=== PATIENT | female | born 1985 | race Caucasian/White ===

== ENCOUNTER 2017-06-08 10:11 | Emergency (ER) | END 2017-06-08 12:15 | disposition home or self-care (01) ==

== ENCOUNTER 2017-07-01 23:29 | Emergency (ER) | END 2017-07-02 01:41 | disposition left against medical advice (07) ==

== ENCOUNTER 2017-11-25 21:47 | Emergency (ER) | END 2017-11-26 02:47 | disposition home or self-care (01) ==

== ENCOUNTER 2018-09-02 20:12 | Inpatient (IN) | payer MEDICAID ==
[~2018-09-02] VITALS: Ht 160 cm; Wt 133.9 kg
[~2018-09-02 20:12] MED LIST: ACET500C5 PO; ALPR1TAB2 PO; CIPR500T4 PO; CYCL5TAB PO; GABA300C16 PO; HYDR-3498 PO; HYDR-4011 PO; IBUP-1542 PO; INSU100V14 SC; MTF1000T PO; NPH SC; ONDA4TAB8 PO; PREN-93 PO
[2018-09-02] MEDS ORDERED: SOD CHLORIDE 0.9% 1,000 ML IV STA (20:53)
--- NOTE | 2018-09-02 21:04 | ERD ---
ER Documentation Chief Complaint Chief Complaint INTERNAL PAIN NEAR RECENT C SECTION, (JUN 2018) ROS All systems reviewed and are negative except as per history of present illness. Medications Home Meds Active Scripts Vit No.124/Iron/FA ( Vitamin Tablet) 1 Each Tablet, 1 EACH PO DAILY for 30 Days, TAB Prov:JEMMA MONCADA 11/26/17 Acetaminophen* (Tylophen*) 500 Mg Capsule, 1 CAP PO Q6H PRN for PAIN AND OR ELEVATED TEMP, #20 CAP Prov:JEMMA MONCADA 11/26/17 Ondansetron Hcl* (Zofran*) 4 Mg Tablet, 4 MG PO Q6H for NAUSEA AND/OR VOMITING, #30 TAB Prov:EULALIA BRASWELL Michelle 06/08/17 Hydrocodone/Acetaminophen ([place] 5-325 Tablet) 1 Each Tablet, 1 TAB PO Q6H PRN for PAIN, #10 TAB Prov:FRENCH,EULALIA C 06/08/17 Ibuprofen* (Motrin*) 600 Mg Tab, 600 MG PO Q6, #30 TAB Prov:FRENCHEULALIA MARCUM Michelle 06/08/17 Hydrocodone Bit-Acetaminophen* ([place]*) 5-325 Mg Tab, 1 TAB PO Q6 PRN for PAIN, #20 TAB Prov:FRENCHLIZEULALIA C 09/29/15 Ciprofloxacin Hcl* (Ciprofloxacin Hcl*) 500 Mg Tablet, 500 MG PO BID for 7 Days, TAB Prov:EULALIA BRASWELL Michelle 09/29/15 Gabapentin* (Gabapentin*) 300 Mg Capsule, 300 MG PO QHS, #30 CAP Prov:DAY OMER NP 09/19/15 Alprazolam* (Xanax*) 1 Mg Tab, 1 MG PO Q8H PRN for ANXIETY, #10 TAB Prov:DAY OMER SIENE MAKER 09/19/15 Cyclobenzaprine Hcl* (Cyclobenzaprine Hcl*) 5 Mg Tablet, 5 MG PO Q8H PRN for MUSCLE SPASMS, #20 TAB Prov:DAY OMER SIENE MAKER 04/19/15 Ibuprofen* (Ibuprofen*) 600 Mg Tablet, 600 MG PO Q6H PRN for PAIN AND OR ELEVATED TEMP, #30 TAB Prov:DAY OMER SIENE MAKER 04/19/15 Hydrocodone Bit-Acetaminophen* ([place]ann[place]*) 5-325 Mg Tab, 1 TAB PO Q4H PRN for pa, #30 TAB Prov:DAY OMER NP 04/19/15 Metformin* (Glucophage*) 1,000 Mg Tablet, 1000 MG PO BID, #20 TAB Prov:BETTY FIELD PA-C 09/02/14 Reported Medications Insulin Human Nph (Novolin-N) 100 Units/Ml Susp, 20 UNIT SC BID, #10 04/18/15 Insulin Regular, Human (Humulin R) 100 Units/Ml Vial, 15 UNIT SC TID, #10 04/18/15 Allergies Allergies: Coded Allergies: Penicillins (Verified Allergy, Severe, CAN'T BREATHE, HIVES, 11/25/17) PMhx/Soc History of Surgery: Yes ( x 3) Anesthesia Reaction: No Hx Neurological Disorder: No Hx Respiratory Disorders: No Hx Cardiac Disorders: No Hx Psychiatric Problems: No Hx Miscellaneous Medical Probl: Yes (DM oral pills, gestational ) Hx Alcohol Use: Yes (Social) Hx Substance Use: No Hx Tobacco Use: No Smoking Status: Never smoker FmHx Family History: No diabetes, No coronary disease, No other Physical Exam Vitals Vital Signs Date Temp Pulse Resp B/P (MAP) Pulse Ox O2 O2 Flow FiO2 Time Delivery Rate 09/02/18 98.2 99 18 130/76 97 20:15 (94) Result Diagram: 09/02/18210709/02/182107 Results 24 hrs Laboratory Tests Test 09/02/18 21:08 09/02/18 21:16 White Blood Count 11.0 10^3/ul Red Blood Count 4.07 10^6/ul Hemoglobin 11.1 g/dl Hematocrit 34.0 % Mean Corpuscular Volume 83.5 fl Mean Corpuscular Hemoglobin 27.3 pg Mean Corpuscular Hemoglobin Concent 32.6 g/dl Red Cell Distribution Width 14.5 % Platelet Count 387 10^3/UL Mean Platelet Volume 9.9 fl Immature Granulocytes % 0.700 % Neutrophils % 62.0 % Lymphocytes % 31.4 % Monocytes % 3.9 % Eosinophils % 1.6 % Basophils % 0.4 % Nucleated Red Blood Cells % 0.0 /100WBC Immature Granulocytes # 0.080 10^3/ul Neutrophils # 6.8 10^3/ul Lymphocytes # 3.4 10^3/ul Monocytes # 0.4 10^3/ul Eosinophils # 0.2 10^3/ul Basophils # 0.0 10^3/ul Nucleated Red Blood Cells # 0.0 10^3/ul Urine Color YELLOW Urine Clarity SLIGHTLY CLOUDY Urine pH 7.0 Urine Specific [place] 1.021 Urine Ketones NEGATIVE mg/dL Urine Nitrite NEGATIVE mg/dL Urine Bilirubin NEGATIVE mg/dL Urine Urobilinogen NEGATIVE mg/dL Urine Leukocyte Esterase NEGATIVE Ynes/ul Urine Microscopic RBC 0 /HPF Urine Microscopic WBC 2 /HPF Urine Squamous Epithelial Cells FEW /HPF Urine Hemoglobin NEGATIVE mg/dL Urine Glucose NEGATIVE mg/dL Urine Total Protein NEGATIVE mg/dl Sodium Level 140 mmol/L Potassium Level 4.3 mmol/L Chloride Level 105 mmol/L Carbon Dioxide Level 27 mmol/L Anion Gap 8 Blood Urea Nitrogen 13 mg/dl Creatinine 1.06 mg/dl Est Glomerular Filtrat Rate mL/min > 60 mL/min Glucose Level 106 mg/dl Calcium Level 9.3 mg/dl Total Bilirubin 0.2 mg/dl Direct Bilirubin 0.00 mg/dl Indirect Bilirubin 0.2 mg/dl Aspartate Amino Transf (AST/SGOT) 39 IU/L Alanine Aminotransferase (ALT/SGPT) 68 IU/L Alkaline Phosphatase 210 IU/L Total Protein 7.9 g/dl Albumin 4.1 g/dl Globulin 3.80 g/dl Albumin/Globulin Ratio 1.07 Lipase 49 U/L POC Beta HCG, Qualitative NEGATIVE Current Medications Medications Dose Sig/Cristian Start Time Status Last (Trade) Ordered Route PRN Stop Time Admin Dose Reason Admin Sodium 1,000 ml @ Q1H STAT 09/02/18 DC 09/02/18 Chloride 1,000 mls/hr IV 20:53 21:21 09/02/18 21:52 IV Flush 10 ml STK-MED 09/02/18 DC 09/02/18 (NS 10 ml) ONCE .ROUTE 21:56 22:09 09/02/18 21:57 Sodium 100 ml @ ud STK-MED 09/02/18 DC 09/02/18 Chloride ONCE .ROUTE 21:56 22:09 09/02/18 21:57 Iohexol 150 ml STK-MED 09/02/18 DC 09/02/18 (Omnipaque ONCE .ROUTE 21:56 22:09 300mg/ ml) 09/02/18 21:57 PAPO SAMPSON Sep 02, 2018 21:04
[2018-09-02] MEDS ORDERED: IOHEXOL 300MG/ML 150 ML BTL ONE (21:56)
[2018-09-02] MEDS ORDERED: SOD CHLORIDE 0.9% 100 ML ONE (21:56)
[2018-09-02] MEDS ORDERED: morphine 4 MG/ML VIAL IV STA (23:56)
[2018-09-02] MEDS ORDERED: ONDANSETRON 4 MG INJ IV STA (23:56)
[2018-09-03] MEDS ORDERED: ACETAMINOPHEN 325 MG TAB PO PRN ×2 (00:30→01:30)
[2018-09-03] MEDS ORDERED: ONDANSETRON 4 MG INJ IV PRN ×2 (00:30→01:30)
--- NOTE | 2018-09-03 01:09 | HP ---
Date/Time of Note Date/Time of Note DATE: 09/03/18 TIME: 01:08 Assessment/Plan VTE Prophylaxis SCD applied (from Nsg): Yes Pharmacological prophylaxis: NA/contraindicated Pharm contraindication: low risk/ambulating Lines/Catheters IV Catheter Type (from Nrsg): Saline Lock Assessment/Plan Hospital Course This is a 32-year-old female being admitted to the [facility] floor for: #1 Intractable abdominal pain: Likely secondary to periumbilical hernia. There is mention in the CT scan of question vascular compromise. There is no signs at the current time of strangulation or incarceration. However patient does have tenderness to palpation. We will keep patient n.p.o. except meds, IV fluid hydration with normal saline. Dr. Martínez of general surgery has already been consulted. #2 diabetes mellitus: We will check hemoglobin A1c, insulin sliding scale, patient is currently n.p.o. except meds, will hold off initiating home insulin at the current time. #3 anxiety: Continue home benzo #4 morbidly obese: We will check a hemoglobin A1c, lipid panel, TSH, will need to encourage diet and lifestyle modification #5 normocytic anemia: We will check iron stores #6 DVT GI prophylaxis: SCDs, no GI prophylaxis indicated Further treatment strategy will be implemented as per the clinical course. Result Diagram: 09/02/18210709/02/182107 Results 24hrs Laboratory Tests Test 09/02/18 21:08 09/02/18 21:16 09/03/18 00:31 White Blood Count 11.0 H Red Blood Count 4.07 L Hemoglobin 11.1 L Hematocrit 34.0 L Mean Corpuscular Volume 83.5 Mean Corpuscular Hemoglobin 27.3 L Mean Corpuscular 32.6 Hemoglobin Concent Red Cell Distribution Width 14.5 Platelet Count 387 Mean Platelet Volume 9.9 Immature Granulocytes % 0.700 H Neutrophils % 62.0 Lymphocytes % 31.4 Monocytes % 3.9 Eosinophils % 1.6 Basophils % 0.4 Nucleated Red Blood Cells % 0.0 Immature Granulocytes # 0.080 H Neutrophils # 6.8 Lymphocytes # 3.4 H Monocytes # 0.4 Eosinophils # 0.2 Basophils # 0.0 Nucleated Red Blood Cells # 0.0 Urine Color YELLOW Urine Clarity SLIGHTLY CLOUDY A Urine pH 7.0 Urine Specific [place] 1.021 Urine Ketones NEGATIVE Urine Nitrite NEGATIVE Urine Bilirubin NEGATIVE Urine Urobilinogen NEGATIVE Urine Leukocyte Esterase NEGATIVE Urine Microscopic RBC 0 Urine Microscopic WBC 2 Urine Squamous FEW Epithelial Cells Urine Hemoglobin NEGATIVE Urine Glucose NEGATIVE Urine Total Protein NEGATIVE Sodium Level 140 Potassium Level 4.3 Chloride Level 105 Carbon Dioxide Level 27 Anion Gap 8 Blood Urea Nitrogen 13 Creatinine 1.06 H Est Glomerular Filtrat > 60 Rate mL/min Glucose Level 106 Calcium Level 9.3 Total Bilirubin 0.2 Direct Bilirubin 0.00 Indirect Bilirubin 0.2 Aspartate Amino 39 Transf (AST/SGOT) Alanine 68 Aminotransferase (ALT/SGPT) Alkaline Phosphatase 210 H Total Protein 7.9 Albumin 4.1 Globulin 3.80 H Albumin/Globulin Ratio 1.07 Lipase 49 POC Beta HCG, Qualitative NEGATIVE Bedside Glucose 132 HPI/ROS Admit Date/Time Admit Date/Time Hx of Present Illness Chief complaint: Abdominal pain near the umbilicus This is a 32-year-old female who presents to the emergency department com plaining of abdominal pain x3 days. Patient reports that she had abdominal pain around the umbilicus. She denies any nausea vomiting or diarrhea. She denies any fevers. She denies any problems with her bowel movements. She states that the pain was on and off over the last 3 days and as ago where she came into the emergency department. Patient did deliver a child in June via . She developed infection in her incision and required to go back via the OR to have the area debrided. She also had a wound VAC placed. She states that her pain though is not in the location of the . Allergies: Penicillin Medications: Metformin NPH insulin 20 units in a.m., 15 units in p.m. Regular insulin 15 units with meals ROS Const: As per HPI Eyes : No pain discharge or redness or change in visual acuity ENT: No pain, sore throat, congestion, congestion, dysphagia or discharge Respiratory: No shortness of breath, cough, sputum, wheezing, or pleuritic pain Cardiovascular: No chest pain, palpitation, PND, or edema GI : As per HPI Genitourinary: No dysuria, hematuria, flank pain , discharge or CVA tenderness Musculoskeletal: No joint pain, back pain, neck pain, restricted range of motion in neck or joints Skin: No rash, bruising or hives Neuro: No headache, dizziness, syncope, seizure, focal weakness Endocrine: No polyuria, polydipsia, temperature intolerance Psych: No hallucination, depression, anxiety or suicidal ideation PMH/Family/Social Past Medical History Diabetes mellitus anxiety Medications Current Medications Ondansetron HCl (Zofran Inj) 4 mg BRIDGE ORDER PRN IV NAUSEA/VOMITING; Start 09/03/18 at 00:30; Stop 09/04/18 at 00:29 Acetaminophen (Tylenol Tab) 650 mg ER BRIDGE PRN PO .MILD PAIN 1-3 OR TEMP; Start 09/03/18 at 00:30; Stop 09/04/18 at 00:29 Coded Allergies: Penicillins (Verified Allergy, Severe, CAN'T BREATHE, HIVES, 11/25/17) Past Surgical History Retinal laser surgery, x3, wound infection status post debridement and wound VAC Family History Significant Family History: no pertinent family hx Social History Alcohol Use: none Smoking Status: Never smoker Drug Use: none Exam/Review of Systems Vital Signs Vitals Vital Signs Date Temp Pulse Resp B/P (MAP) Pulse Ox O2 O2 Flow FiO2 Time Delivery Rate 09/02/18 98.2 99 18 130/76 97 20:15 (94) Intake and Output 09/02/18 09/02/18 09/03/18 1515:00 23:00 07:00 IntakeIntake Total 1100 ml BalanceBalance 1100 ml Exam Exam General: Patient is a pleasant female currently lying in bed in no acute distress HEENT: Atraumatic, normocephalic. The pupils are equal, round and reactive. Extraocular motor are intact Neck: Supple with full range of motion. No rigidity or meningismus Chest: Nontender Lungs: Clear to auscultation bilaterally no crackles rales or wheezing Heart: Normal S1-S2, Regular rhythm and rate. No murmur, S3, or S4 Abdomen: Morbidly obese, soft , tender to palpation at the umbilicus and goran umbilical area, periumbilical hernia palpated on exam more pronounced with cough, nondistended , bowel sounds are present. No guarding no rebound tenderness , previous scar present with dry dressing healing well Extremities: Normal to inspection, no edema no cyanosis Neurologic: Normal mental status, speech normal, cranial nerves II through XII are intact, motor and sensory are intact, no focal weakness Additional Comments PROCEDURE: CT abdomen and pelvis with contrast. CLINICAL INDICATION: Abdominal Pain TECHNIQUE: CT scan of the abdomen and pelvis without oral contrast was performed and is reconstructed at 2.5 mm contiguous axial intervals from the dome of the diaphragm to the inferior pubic rami.. The patient was scanned with intravenous contrast. Sagittal and coronal reformatted images were obtained from the axial source images. The calculated radiation dose measures 1477 mGy centimeters. The CTDI measures 23.7 mGy. Individualized dose optimization technique was used for the performance of this exam. This included 1. Automated exposure control. 2. Adjustment of the mA and / or kV according to the patient's size. 3. Use of iterative reconstructed technique. DICOM images are available. COMPARISON: CT chest September 09, 2013 FINDINGS: The lung bases are clear of any infiltrate . There is a single 3 mm pleural-base d micro nodule on the lateral aspect of the right lower lobe. This was not seen on the prior study from 2013.. No effusion is seen. Liver is enlarged measuring 29.5 cm in length. There is fatty infiltration. No mass or ductal dilatation is present. There are gallstones. No splenic, adrenal or pancreatic abnormalities present. Kidneys are of normal size and contour. No hydronephrosis, calculus or mass Is seen. Ureters are of normal course and caliber with no stone. No bladder mass or stone is present. Uterus and ovaries appear normal. There is no aneurysm. No adenopathy is present. No bowel mass or obstruction is present. The appendix is normal. No phlegmon, ascites or pneumoperitoneum is visualized. Noted is a midline paraumbilical hernia containing fat. There is stranding within the fat which may represent evidence of vascular compromise. No fluid or bowel loop is seen. The osseous structures are intact. IMPRESSION: No evidence of urolithiasis, obstructive uropathy, diverticulitis or appendicitis. Enlarged fatty liver. Cholelithiasis. Paraumbilical hernia containing dirty fat. Question vascular compromise. .Gurnider Ramsey MD, MD Date Time Electronically viewed and signed by .Gurinder Ramsey MD, MD on 09/02/2018 22:37 .A/ CC: PAPO SAMPSON [id number] PROCEDURE: US Abdomen. CLINICAL INDICATION: abdominal pain TECHNIQUE: Multiple real-time images were acquired of the patient's right upper quadrant abdomen and retroperitoneum utilizing a high resolution transducer. COMPARISON: 09/29/15 FINDINGS: The liver demonstrates increased echogenicity. The liver is enlarged in size and no focal solid lesions are seen. The liver measures 29.2 cm in length. The portal vein is patent with normal direction of flow. No intrahepatic biliary dilatation is seen. The gallbladder is filled with multiple calcified stones. There is no pericholecystic fluid or gallbladder wall thickening. The common bile duct measures 4.6 mm in maximal dimension. The visualized portions of the pancreas are unremarkable. The tail of the pancreas is not seen. No free fluid is identified. The right kidney is normal in size, and demonstrate normal echogenicity and cortical thickness. The right kidney measures 12 cm in long dimension. There is no evidence of hydronephrosis. There are no kidney stones. RPTAT: AA IMPRESSION: Marked hepatomegaly with fatty liver. Gallbladder filled with multiple calcified stones. .Ronnie Fong MD, MD Date Time Electronically viewed and signed by .Ronnie Fong MD, on 09/02/2018 22:03 .S/ CC: PAPO SAMPSON [phone] RAGINI MANUEL Sep 03, 2018 01:09
[2018-09-03] MEDS ORDERED: morphine 2 MG INJ IV PRN (01:30)
[2018-09-03] MEDS ORDERED: NACL 0.9% 3 ML SYG IV SCH (01:30)
[2018-09-03 04:05] VITALS: BP 117/67; PULSE 81; RESP 17
[2018-09-03] MEDS: SOD CHLORIDE 0.9% 1,000 ML IV SCH ×2 (04:17→12:39)
[2018-09-03 04:23] VITALS: Ht 160 cm; Wt 133.9 kg
[2018-09-03] MEDS ORDERED: MTF1000T PO (05:26)
[2018-09-03] MEDS ORDERED: SS SC (05:26)
[2018-09-03] MEDS ORDERED: INSU100C3 SQ (05:27)
[2018-09-03] MEDS ORDERED: NOVO3I SC (05:29)
[2018-09-03] MEDS ORDERED: GLUCAGON 1 MG INJ IM PRN (06:30)
[2018-09-03] MEDS ORDERED: GLUCOSE GEL 15 GRAM TUBE BUCCAL PRN (06:30)
[2018-09-03] MEDS ORDERED: DEXTROSE 50% 50 ML SYRINGE IV PRN ×2 (06:30)
[2018-09-03] MEDS ORDERED: GLUCOSE GEL 15 GRAM TUBE PO PRN ×2 (06:30)
[2018-09-03] MEDS ORDERED: ALPRAZOLAM 1 MG TAB PO PRN (07:00)
[2018-09-03 08:00] VITALS: BP 106/57; PULSE 75; RESP 18
[2018-09-03] MEDS: INSULIN ASPART [NOVOLOG] 3 ML PEN SC SCH ×4 (09:28→21:00)
--- NOTE | 2018-09-03 11:44 | QN ---
Documentation Comment 82-year-old morbidly obese female with a history of diabetes, anxiety disorders, here with intractable abdominal pain, found to have periumbilical hernia. Patient is hemodynamically stable. Pending surgical follow-up. Continue n.p.o. status. Continue pain control. Patient was counseled on lifestyle changes/weight reduction. Add basal insulin for diabetes management. Patient was seen in collaboration with NETTIE Lassiter NP Sep 03, 2018 11:44
--- NOTE | 2018-09-03 13:30 | CONS ---
Assessment/Plan Assessment/Plan Hospital Course (Demo Recall) 1. Abdominal pain likely secondary to umbilical hernia: Reducible; manually reduced -No emergent surgical intervention necessary at this time patient may follow with us as outpatient -Had lengthy discussion with patient regarding surgical repair of the hernia. Patient will need weight loss prior to surgical intervention to ensure successful repair. May follow with us as outpatient -Pain management -Abdominal binder 2. Superobesity BMI: 52 -diet and exercise optimization -encourage weight loss 3. Diabetes: -Highly encouraged weight loss -Glucose optimization 4. Mild leukocytosis: Resolved 5.Elevated triglycerides: -Highly encouraged weight loss -Diet and exercise 6. Minimally elevated alkaline phosphatase: -Trend and work-up if persistent 7. Right pubic open wound -Wound care Thank you. Patient seen and examined in collaboration with Dr. Chas Martíenz. Consultation Date/Type/Reason Admit Date/Time Date of Consultation: Sep 03, 2018 Type of Consult Surgical Reason for Consultation Abdominal pain, hernia Requesting Provider: RAGINI MANUEL Date/Time of Note DATE: 09/03/18 TIME: 13:11 Hx of Present Illness Rosetta Vera Is a 32-year-old woman with past medical history of diabetes, obesity, recent with right lower quadrant open wound, status post debridement of the area and wound VAC. Abdominal pain is, Who presented to the ED with complaints of abdominal pain x3 days. Abdominal pain is periumbilical with radiation to the back. She denies fevers, chills, congested cough, chest pain, palpitations, nausea, vomiting, change in bowel or bladder habits, trauma to the area. abdominal imaging shows umbilical hernia with concern for vascular compromise. Laboratory findings significant for a mild leukocytosis that has since resolved. General surgery was asked to evaluate. 12 point review of systems was performed and is negative except for as stated in HPI. Past Medical History As above Home Meds Active Scripts Vit No.124/Iron/FA ( Vitamin Tablet) 1 Each Tablet, 1 EACH PO DAILY for 30 Days, TAB Prov:REBECCAILABANBETZYAR F 11/26/17 Acetaminophen* (Tylophen*) 500 Mg Capsule, 1 CAP PO Q6H PRN for PAIN AND OR ELEVATED TEMP, #20 CAP Prov:PASILABAN,BETZYAR F 11/26/17 Ondansetron Hcl* (Zofran*) 4 Mg Tablet, 4 MG PO Q6H for NAUSEA AND/OR VOMITING, #30 TAB Prov:EULALIA BRASWELL Michelle 06/08/17 Hydrocodone/Acetaminophen ([place] 5-325 Tablet) 1 Each Tablet, 1 TAB PO Q6H PRN for PAIN, #10 TAB Prov:EULALIA BRASWELL Michelle 06/08/17 Ibuprofen* (Motrin*) 600 Mg Tab, 600 MG PO Q6, #30 TAB Prov:EULALIA BRASWELL 06/08/17 Hydrocodone Bit-Acetaminophen* ([place]*) 5-325 Mg Tab, 1 TAB PO Q6 PRN for PAIN, #20 TAB Prov:EULALIA BRASWELL Michelle 09/29/15 Ciprofloxacin Hcl* (Ciprofloxacin Hcl*) 500 Mg Tablet, 500 MG PO BID for 7 Days, TAB Prov:EULALIA BRASWELL Michelle 09/29/15 Gabapentin* (Gabapentin*) 300 Mg Capsule, 300 MG PO QHS, #30 CAP Prov:DAY OMER NP 09/19/15 Alprazolam* (Xanax*) 1 Mg Tab, 1 MG PO Q8H PRN for ANXIETY, #10 TAB Prov:DAY OMER [employer] 09/19/15 Cyclobenzaprine Hcl* (Cyclobenzaprine Hcl*) 5 Mg Tablet, 5 MG PO Q8H PRN for MUSCLE SPASMS, #20 TAB Prov:DAY OMER [employer] 04/19/15 Ibuprofen* (Ibuprofen*) 600 Mg Tablet, 600 MG PO Q6H PRN for PAIN AND OR ELEVATED TEMP, #30 TAB Prov:DAY OMER [employer] [employer] 04/19/15 Hydrocodone Bit-Acetaminophen* ([place]*) 5-325 Mg Tab, 1 TAB PO Q4H PRN for pa, #30 TAB Prov:DAY OMER [employer] 04/19/15 Metformin* (Glucophage*) 1,000 Mg Tablet, 1000 MG PO BID, #20 TAB Prov:BETTY FIELD PA-C 09/02/14 Reported Medications Insulin Aspart* (Novolog Insulin Pen*) 100 Unit/Ml Soln, 20 UNIT SC QHS, EA 09/03/18 Insulin Aspart (Novolog) 100 Unit/1 Ml Cartridge, 20 UNIT SQ AC BREAKFAST 09/03/18 Insulin Human Regular (Novolin-R U-100) 100 Unit/Ml Soln, 15 UNITS SC AC LUNCH DINNER, EA 09/03/18 Metformin* (Glucophage*) 1,000 Mg Tablet, 1000 MG PO WITH BREAKFAST, #30 TAB 09/03/18 Insulin Human Nph (Novolin-N) 100 Units/Ml Susp, 20 UNIT SC BID, #10 04/18/15 Insulin Regular, Human (Humulin R) 100 Units/Ml Vial, 15 UNIT SC TID, #10 04/18/15 Medications Current Medications Ondansetron HCl (Zofran Inj) 4 mg BRIDGE ORDER PRN IV NAUSEA/VOMITING; Start 09/03/18 at 00:30; Stop 09/04/18 at 00:29 Acetaminophen (Tylenol Tab) 650 mg ER BRIDGE PRN PO .MILD PAIN 1-3 OR TEMP; Start 09/03/18 at 00:30; Stop 09/04/18 at 00:29 Sodium Chloride 1,000 ml @ 100 mls/hr Q10H IV Last administered on 09/03/18at 12:39; Admin Dose 100 MLS/HR; Start 09/03/18 at 01:06 IV Flush (NS 3 ml) 3 ml PER PROTOCOL IV ; Start 09/03/18 at 01:30 Ondansetron HCl (Zofran Inj) 4 mg Q6H PRN IV NAUSEA/VOMITING; Start 09/03/18 at 01:30 Acetaminophen (Tylenol Tab) 650 mg Q6H PRN PO .PAIN 1-3 OR TEMP; Start 09/03/18 at 01:30 Morphine Sulfate (morphine) 2 mg Q4H PRN IV .SEVERE PAIN 7-10 Last administered on 09/03/18at 09:34; Admin Dose 2 MG; Start 09/03/18 at 01:30 Insulin Aspart (Novolog Insulin Pen) NOVOLOG *MILD* ALGORI... Q4 SC Last administered on 09/03/18at 12:46; Admin Dose 1 UNIT; Start 09/03/18 at 09:00 Miscellaneous Information 1 ea NOTE XX ; Start 09/03/18 at 06:30 Glucose (Glutose) 15 gm Q15M PRN PO DECREASED GLUCOSE; Start 09/03/18 at 06:30 Glucose (Glutose) 22.5 gm Q15M PRN PO DECREASED GLUCOSE; Start 09/03/18 at 06:30 Dextrose (D50w Syringe) 25 ml Q15M PRN IV DECREASED GLUCOSE; Start 09/03/18 at 06:30 Dextrose (D50w Syringe) 50 ml Q15M PRN IV DECREASED GLUCOSE; Start 09/03/18 at 06:30 Glucagon (Glucagen) 1 mg Q15M PRN IM DECREASED GLUCOSE; Start 09/03/18 at 06:30 Glucose (Glutose) 15 gm Q15M PRN BUCCAL DECREASED GLUCOSE; Start 09/03/18 at 06:30 Alprazolam (Xanax) 1 mg Q8H PRN PO ANXIETY; Start 09/03/18 at 07:00 Allergies: Coded Allergies: Penicillins (Verified Allergy, Severe, CAN'T BREATHE, HIVES, 11/25/17) Past Surgical History As above Family History Significant Family History: no pertinent family hx Social History Alcohol Use: none Smoking Status: Never smoker Drug Use: none Exam/Review of Systems Exam Vitals Vital Signs Date Temp Pulse Resp B/P (MAP) Pulse Ox O2 O2 Flow FiO2 Time Delivery Rate 09/03/18 98.6 75 18 106/57 96 08:00 (73) 09/03/18 Room Air 03:53 Intake and Output 09/02/18 09/02/18 09/03/18 1515:00 23:00 07:00 IntakeIntake Total 1200 ml BalanceBalance 1200 ml Constitutional: alert, oriented, obese Psych: nl mood/affect; No anxiety Head: normocephalic, atraumatic Eyes: nl conjunctiva, EOMI, nl lids, nl sclera ENMT: nl external ears & nose, nl lips & teeth, mucosa pink and moist Neck: supple, non-tender; No jvd Respiratory: normal air movement; No congested cough Cardiovascular: regular rate and rhythm Gastrointestinal: soft, tender (Periumbilical; umbilical hernia, reducible; no skin discoloration or bruising) Genitourinary - Female: nl adnexae, nl external genitalia Musculoskeletal: nl extremities to inspection, nl gait and stance Extremities: normal pulses Neurological: nl mental status, nl speech, nl strength Skin: other (Open wound right lower pubis: No drainage clean, ); No rash or lesions, No diaphoresis Lymph: nl lymph nodes Results Result Diagram: 09/03/18 0521 09/03/18 0521 Results 24hrs Laboratory Tests Test 09/02/18 21:08 09/02/18 21:16 09/03/18 00:31 09/03/18 04:59 White Blood Count 11.0 H Red Blood Count 4.07 L Hemoglobin 11.1 L Hematocrit 34.0 L Mean Corpuscular 83.5 Volume Mean Corpuscular 27.3 L Hemoglobin Mean Corpuscular 32.6 Hemoglobin Concen t Red Cell 14.5 Distribution Width Platelet Count 387 Mean Platelet 9.9 Volume Immature 0.700 H Granulocytes % Neutrophils % 62.0 Lymphocytes % 31.4 Monocytes % 3.9 Eosinophils % 1.6 Basophils % 0.4 Nucleated Red 0.0 Blood Cells % Immature 0.080 H Granulocytes # Neutrophils # 6.8 Lymphocytes # 3.4 H Monocytes # 0.4 Eosinophils # 0.2 Basophils # 0.0 Nucleated Red 0.0 Blood Cells # Urine Color YELLOW Urine Clarity SLIGHTLY CLOUDY A Urine pH 7.0 Urine Specific 1.021 [place] Urine Ketones NEGATIVE Urine Nitrite NEGATIVE Urine Bilirubin NEGATIVE Urine NEGATIVE Urobilinogen Urine Leukocyte NEGATIVE Esterase Urine Microscopic 0 RBC Urine Microscopic 2 WBC Urine Squamous FEW Epithelial Cells Urine Hemoglobin NEGATIVE Urine Glucose NEGATIVE Urine Total NEGATIVE Protein Sodium Level 140 Potassium Level 4.3 Chloride Level 105 Carbon Dioxide 27 Level Anion Gap 8 Blood Urea 13 Nitrogen Creatinine 1.06 H Est Glomerular > 60 Filtrat Rate mL/min Glucose Level 106 Calcium Level 9.3 Total Bilirubin 0.2 Direct Bilirubin 0.00 Indirect 0.2 Bilirubin Aspartate Amino 39 Transf (AST/SGOT) Alanine 68 Aminotransferase (ALT/SGPT) Alkaline 210 H Phosphatase Total Protein 7.9 Albumin 4.1 Globulin 3.80 H Albumin/Globulin 1.07 Ratio Lipase 49 POC Beta HCG, NEGATIVE Qualitative Bedside Glucose 132 142 Test 09/03/18 05:21 09/03/18 09:24 09/03/18 12:44 White Blood Count 10.4 Red Blood Count 3.91 L Hemoglobin 10.4 L Hematocrit 32.7 L Mean Corpuscular 83.6 Volume Mean Corpuscular 26.6 L Hemoglobin Mean Corpuscular 31.8 L Hemoglobin Concen t Red Cell 14.8 H Distribution Width Platelet Count 359 Mean Platelet 9.9 Volume Immature 0.700 H Granulocytes % Neutrophils % 62.4 Lymphocytes % 30.1 Monocytes % 4.3 Eosinophils % 2.1 Basophils % 0.4 Nucleated Red 0.0 Blood Cells % Immature 0.070 H Granulocytes # Neutrophils # 6.5 Lymphocytes # 3.1 H Monocytes # 0.5 Eosinophils # 0.2 Basophils # 0.0 Nucleated Red 0.0 Blood Cells # Prothrombin Time 13.0 Prothrombin Time 1.0 Ratio INR International 0.97 Normalized Ratio Activated 35.6 H Partial Thrombopl ast Time Sodium Level 140 Potassium Level 4.1 Chloride Level 107 Carbon Dioxide 27 Level Anion Gap 6 Blood Urea 13 Nitrogen Creatinine 0.73 Est Glomerular > 60 Filtrat Rate mL/min Glucose Level 142 Hemoglobin A1c 6.6 H Calcium Level 8.7 Total Bilirubin 0.3 Direct Bilirubin 0.00 Indirect 0.3 Bilirubin Aspartate Amino 36 Transf (AST/SGOT) Alanine 60 Aminotransferase (ALT/SGPT) Alkaline 181 H Phosphatase Total Protein 6.8 # Albumin 3.5 Globulin 3.30 H Albumin/Globulin 1.06 Ratio Triglycerides 191 H Level Cholesterol Level 141 LDL Cholesterol, 75 Calculated HDL Cholesterol 28 L Cholesterol/HDL 5.0 Ratio Thyroid 4.570 Stimulating Hormone (TSH) Bedside Glucose 170 159 Medications Medication Current Medications Ondansetron HCl (Zofran Inj) 4 mg BRIDGE ORDER PRN IV NAUSEA/VOMITING; Start 09/03/18 at 00:30; Stop 09/04/18 at 00:29 Acetaminophen (Tylenol Tab) 650 mg ER BRIDGE PRN PO .MILD PAIN 1-3 OR TEMP; Start 09/03/18 at 00:30; Stop 09/04/18 at 00:29 Sodium Chloride 1,000 ml @ 100 mls/hr Q10H IV Last administered on 09/03/18at 12:39; Admin Dose 100 MLS/HR; Start 09/03/18 at 01:06 IV Flush (NS 3 ml) 3 ml PER PROTOCOL IV ; Start 09/03/18 at 01:30 Ondansetron HCl (Zofran Inj) 4 mg Q6H PRN IV NAUSEA/VOMITING; Start 09/03/18 at 01:30 Acetaminophen (Tylenol Tab) 650 mg Q6H PRN PO .PAIN 1-3 OR TEMP; Start 09/03/18 at 01:30 Morphine Sulfate (morphine) 2 mg Q4H PRN IV .SEVERE PAIN 7-10 Last administered on 09/03/18at 09:34; Admin Dose 2 MG; Start 09/03/18 at 01:30 Insulin Aspart (Novolog Insulin Pen) NOVOLOG *MILD* ALGORI... Q4 SC Last administered on 09/03/18at 12:46; Admin Dose 1 UNIT; Start 09/03/18 at 09:00 Miscellaneous Information 1 ea NOTE XX ; Start 09/03/18 at 06:30 Glucose (Glutose) 15 gm Q15M PRN PO DECREASED GLUCOSE; Start 09/03/18 at 06:30 Glucose (Glutose) 22.5 gm Q15M PRN PO DECREASED GLUCOSE; Start 09/03/18 at 06:30 Dextrose (D50w Syringe) 25 ml Q15M PRN IV DECREASED GLUCOSE; Start 09/03/18 at 06:30 Dextrose (D50w Syringe) 50 ml Q15M PRN IV DECREASED GLUCOSE; Start 09/03/18 at 06:30 Glucagon (Glucagen) 1 mg Q15M PRN IM DECREASED GLUCOSE; Start 09/03/18 at 06:30 Glucose (Glutose) 15 gm Q15M PRN BUCCAL DECREASED GLUCOSE; Start 09/03/18 at 06:30 Alprazolam (Xanax) 1 mg Q8H PRN PO ANXIETY; Start 09/03/18 at 07:00 BAM TORREZ NP Sep 03, 2018 13:22
[2018-09-03 14:00] VITALS: BP 106/74; PULSE 76; RESP 20
[2018-09-03 19:30] VITALS: BP 112/69; PULSE 89; RESP 16
[2018-09-03] MEDS: NYSTATIN 30 GM POWDER BTL TOP SCH (21:30)
[2018-09-04] MEDS: SOD CHLORIDE 0.9% 1,000 ML IV SCH (00:23)
[2018-09-04 02:10] VITALS: BP 113/63; PULSE 81; RESP 18
[2018-09-04 08:00] VITALS: BP 118/63; PULSE 84; RESP 20
[2018-09-04] MEDS: INSULIN ASPART [NOVOLOG] 3 ML PEN SC SCH ×2 (09:22→12:48)
--- NOTE | 2018-09-04 10:18 | PDOCDIS ---
Discharge Instructions CONDITION [id number] Patient Condition: [id number] Stable HOME CARE INSTRUCTIONS: [id number] Your diet recommendation is: [id number] Carbohydrate controlled/low-cholesterol diet FOLLOW UP/APPOINTMENTS Follow-up Plan You are seen by surgical oncologist and abdominal pain likely secondary to umbilical hernia which was manually reduced . You were instructed to follow with or any other surgical oncologist of your choice as outpatient. You will need weight loss prior to surgical intervention to ensure successful repair. You will need to wear abdominal binder. Chas Martínez MD Specialty General Surgery Comments Office Address [address] [place] [address] [place] [id number] Office Follow up With primary care physician in 1 week. NETTIE GREER NP Sep 04, 2018 10:18
[2018-09-04] MEDS ORDERED: HYDR-4011 PO (10:22)
[2018-09-04] MEDS ORDERED: OMEG1CAP17 PO (10:25)
--- NOTE | 2018-09-04 10:32 | DS ---
Date/Time of Note Date/Time of Note DATE: 09/04/18 TIME: 10:30 Discharge Summary Admission/Discharge Info Admit Date/Time Sep 03, 2018 at 00:31 Discharge Date/Time Discharge Diagnosis Abdominal pain with umbilical hernia, reducible. Manually reduce. Morbid obesity with a BMI 52.3 Type 2 diabetes Dyslipidemia. Diabetic neuropathy Patient Condition: Stable Consults Procedures 09/02/2018: Abdominal CT MPRESSION: No evidence of urolithiasis, obstructive uropathy, diverticulitis or appendicitis. Enlarged fatty liver. Cholelithiasis. Paraumbilical hernia containing dirty fat. Question vascular compromise. Hospital Course 82-year-old morbidly obese female with a history of diabetes, anxiety disorders, here with intractable abdominal pain, found to have periumbilical hernia without any evidence of strangulation or incarceration. Patient was evaluated by commercial marketing specialist and no emergent surgical intervention was indicated. Umbilical hernia was manually reduced with improvement in pain. Patient was able to tolerate diet and activities afterwards. Patient was recommended regarding surgical repair of the hernia for which patient will also need to lose weight prior to surgical intervention to ensure successful repair. Patient was recommended to follow-up as outpatient with commercial marketing specialist after discharge. She was continued on pain management and abdominal binder for now. She was counseled on diet and exercise for underlying morbid obesity. She was recommended to take fish oil with repeat labs in 4 weeks. She was continued on insulin regimen for underlying diabetes. At this time, patient is feeling back to normal and eager to be discharged home. She will follow-up with commercial marketing specialist after discharge. Approximately 60-minute was spent on coordinating the discharge on this patient. Patient was seen in collaboration with Dr. Palomino. Home Meds Active Scripts [place]-3 Fatty Acids/Fish Oil (Fish Oil 1,000 mg Softgel) 1 Each Capsule, 1 EACH PO BID, #60 CAP Prov:NETTIE GREER V. GLASS WORKER 09/04/18 Vit No.124/Iron/FA ( Vitamin Tablet) 1 Each Tablet, 1 EACH PO DAILY for 30 Days, TAB Prov:JEMMA MONCADA 11/26/17 Acetaminophen* (Tylophen*) 500 Mg Capsule, 1 CAP PO Q6H PRN for PAIN AND OR ELEVATED TEMP, #20 CAP Prov:JEMMA MONCADA 11/26/17 Ondansetron Hcl* (Zofran*) 4 Mg Tablet, 4 MG PO Q6H for NAUSEA AND/OR VOMITING, #30 TAB Prov:FRENCHEULALIA Martinez 06/08/17 Hydrocodone/Acetaminophen ([place] 5-325 Tablet) 1 Each Tablet, 1 TAB PO Q6H PRN for PAIN, #10 TAB Prov:LIZ BRASWELLDEEPALI Martinez 06/08/17 Ibuprofen* (Motrin*) 600 Mg Tab, 600 MG PO Q6, #30 TAB Prov:LIZ BRASWELLDEEPALI Martinez 06/08/17 Hydrocodone Bit-Acetaminophen* ([place]*) 5-325 Mg Tab, 1 TAB PO Q6 PRN for PAIN, #20 TAB Prov:EULALIA BRASWELL 09/29/15 Ciprofloxacin Hcl* (Ciprofloxacin Hcl*) 500 Mg Tablet, 500 MG PO BID for 7 Days, TAB Prov:EULALIA BRASWELL 09/29/15 Gabapentin* (Gabapentin*) 300 Mg Capsule, 300 MG PO QHS, #30 CAP Prov:DAY OMER NP 09/19/15 Alprazolam* (Xanax*) 1 Mg Tab, 1 MG PO Q8H PRN for ANXIETY, #10 TAB Prov:DAY OMER [employer] 09/19/15 Cyclobenzaprine Hcl* (Cyclobenzaprine Hcl*) 5 Mg Tablet, 5 MG PO Q8H PRN for MUSCLE SPASMS, #20 TAB Prov:DAY OMER [employer] 04/19/15 Ibuprofen* (Ibuprofen*) 600 Mg Tablet, 600 MG PO Q6H PRN for PAIN AND OR ELEVATED TEMP, #30 TAB Prov:DAY OMER [employer] 04/19/15 Hydrocodone Bit-Acetaminophen* ([place]*) 5-325 Mg Tab, 1 TAB PO Q4H PRN for pa, #30 TAB Prov:DAY OMER [employer] 04/19/15 Metformin* (Glucophage*) 1,000 Mg Tablet, 1000 MG PO BID, #20 TAB Prov:BETTY FIELD-C 09/02/14 Reported Medications Insulin Human Nph (Novolin-N) 100 Units/Ml Susp, 20 UNIT SC BID, #10 04/18/15 Insulin Regular, Human (Humulin R) 100 Units/Ml Vial, 15 UNIT SC TID, #10 04/18/15 Discontinued Reported Medications Insulin Aspart* (Novolog Insulin Pen*) 100 Unit/Ml Soln, 20 UNIT SC QHS, EA 09/03/18 Insulin Aspart (Novolog) 100 Unit/1 Ml Cartridge, 20 UNIT SQ AC BREAKFAST 09/03/18 Insulin Human Regular (Novolin-R U-100) 100 Unit/Ml Soln, 15 UNITS SC AC LUNCH DINNER, EA 09/03/18 Metformin* (Glucophage*) 1,000 Mg Tablet, 1000 MG PO WITH BREAKFAST, #30 TAB 09/03/18 Follow-up Plan You are seen by commercial marketing specialist and abdominal pain likely secondary to umbilical hernia which was manually reduced . You were instructed to follow with or any other commercial marketing specialist of your choice as outpatient. You will need weight loss prior to surgical intervention to ensure successful repair. You will need to wear abdominal binder. Chas Martínez MD Specialty General Surgery Comments Office Address [address] [facility] [address] [place] [id number] Office Follow up With primary care physician in 1 week. Primary Care Provider Care Physician No Primary Pending Labs Laboratory Tests Test 09/03/18 12:44 09/03/18 17:36 09/03/18 21:29 09/04/18 04:53 Bedside 159 124 125 Glucose mg/dL (70-220) mg/dL (70-220) mg/dL (70-220) White Blood 8.7 Count 10^3/ul (4.8-1 0.8) Red Blood 4.15 Count 10^6/ul (4.20- 5.40) Hemoglobin 11.2 g/dl (12.0-16. 0) Hematocrit 34.8 % (37.0-47.0) Mean 83.9 Corpuscular fl (82.0-101.0 Volume ) Mean 27.0 Corpuscular pg (29.0-33.0) Hemoglobin Mean 32.2 Corpuscular g/dl (32.0-37. Hemoglobin Conc 0) ent Red Cell 14.4 Distribution % (11.5-14.5) Width Platelet Count 346 10^3/UL (140-4 15) Mean Platelet 9.7 Volume fl (7.4-10.4) Immature 0.700 Granulocytes % % (0.001-0.429 ) Neutrophils % 66.9 % (39.0-77.0) Lymphocytes % 25.9 % (15.0-51.0) Monocytes % 4.1 % (0.0-11.0) Eosinophils % 1.9 % (0.0-7.0) Basophils % 0.5 % (0.0-2.0) Nucleated Red 0.0 Blood Cells % /100WBC (0.0-0 .0) Immature 0.060 Granulocytes # 10^3/ul (0.0-0 .031) Neutrophils # 5.8 10^3/ul (1.6-7 .5) Lymphocytes # 2.3 10^3/ul (0.8-2 .9) Monocytes # 0.4 10^3/ul (0.3-0 .9) Eosinophils # 0.2 10^3/ul (0.0-0 .5) Basophils # 0.0 10^3/ul (0.0-0 .1) Nucleated Red 0.0 Blood Cells # 10^3/ul (0.0-0 .0) Sodium Level 139 mmol/L (135-14 4) Potassium 4.1 Level mmol/L (3.5-5. 1) Chloride Level 107 mmol/L (97-110 ) Carbon Dioxide 25 Level mmol/L (21-31) Anion Gap 7 (5-13) Blood Urea 7 mg/dl (7-20) Nitrogen Creatinine 0.61 mg/dl (0.44-1. 00) Est Glomerular > 60 Filtrat mL/min (>60) Rate mL/min Glucose Level 144 mg/dl (70-220) Calcium Level 9.1 mg/dl (8.4-10. 2) Iron Level 52 ug/dl (35-150) Total Iron 315 Binding ug/dl (241-421 Capacity ) Percent Iron 17 % Saturation SAT (22-52) Ferritin 27.6 ng/ml (6.2-137 .0) Total 0.3 Bilirubin mg/dl (0.2-1.3 ) Direct 0.00 Bilirubin mg/dl (0.00-0. 20) Indirect 0.3 Bilirubin mg/dl (0-1.1) Aspartate Amino 36 Transf (AST/SGO IU/L (15-46) T) Alanine 57 Aminotransferas IU/L (13-69) e (ALT/SGPT) Alkaline 184 Phosphatase IU/L (42-121) Total Protein 6.9 g/dl (6.1-8.1) Albumin 3.5 g/dl (3.3-4.9) Globulin 3.40 g/dl (1.3-3.2) Albumin/Globuli 1.02 n Ratio Test 09/04/18 07:59 Bedside 158 Glucose mg/dL (70-220) NETTIE GREER V. GLASS WORKER Sep 04, 2018 10:32
[2018-09-04] MEDS: NYSTATIN 30 GM POWDER BTL TOP SCH (11:14)
--- NOTE | 2018-09-04 14:03 | PN ---
Date/Time of Note Date/Time of Note DATE: 09/04/18 TIME: 13:58 Assessment/Plan Lines/Catheters IV Catheter Type (from Nrs): Saline Lock Assessment/Plan Chief Complaint/Hosp Course 1. Abdominal pain likely secondary to umbilical hernia: Reducible; manually reduced; HD stable, abdominal pain much improved with abdominal binder -No emergent surgical intervention necessary at this time patient may follow with us as outpatient -Had lengthy discussion with patient regarding surgical repair of the hernia. Patient will need weight loss prior to surgical intervention to ensure successf ul repair. May follow with us as outpatient -Pain management -Abdominal binder 2. Superobesity BMI: 52 -diet and exercise optimization -encourage weight loss 3. Diabetes: -Highly encouraged weight loss -Glucose optimization 4. Mild leukocytosis: Resolved 5.Elevated triglycerides: -Highly encouraged weight loss -Diet and exercise 6. Minimally elevated alkaline phosphatase: -Trend and work-up if persistent 7. Right pubic open wound -Wound care Thank you. Patient seen and examined in collaboration with Dr. Chas Martínez. Subjective 24 Hr Interval Summary Feels better. Abdominal pain much improved. No fevers, chills, sob, congested cough, cp, palpitations, arguelles, dizziness, n/v/d/dysuria. Tolerating diet. HD stable. Exam/Review of Systems Vital Signs Vitals Vital Signs Date Temp Pulse Resp B/P (MAP) Pulse Ox O2 O2 Flow FiO2 Time Delivery Rate 09/04/18 98.9 84 20 118/63 98 08:00 (81) 09/03/18 Room Air 03:53 Intake and Output 09/03/18 09/03/18 09/04/18 1515:00 23:00 07:00 IntakeIntake Total 900 ml 600 ml 900 ml BalanceBalance 900 ml 600 ml 900 ml Exam Free Text/Dictation Constitutional: alert, oriented, obese Psych: nl mood/affect; No anxiety Head: normocephalic, atraumatic Eyes: nl conjunctiva, EOMI, nl lids, nl sclera ENMT: nl external ears & nose, nl lips & teeth, mucosa pink and moist Neck: supple, non-tender; No jvd Respiratory: normal air movement; No congested cough Cardiovascular: regular rate and rhythm Gastrointestinal: soft, nontender (Periumbilical; umbilical hernia, reducible; no skin discoloration or bruising) Genitourinary - Female: nl adnexae, nl external genitalia Musculoskeletal: nl extremities to inspection, nl gait and stance Extremities: normal pulses Neurological: nl mental status, nl speech, nl strength Skin: other (Open wound right lower pubis: No drainage clean, ); No rash or lesions, No diaphoresis Lymph: nl lymph nodes Results Result Diagram: 09/04/18 0453 09/04/18 0453 BAM TORREZ NP Sep 04, 2018 14:03
== END 2018-09-04 14:25 | disposition home or self-care (01) | DRG 394 ==
LOC: FTE 20:12 → PP2 09-03 00:31
PROVIDERS: ADMIT Family Medicine; ATTEND Family Medicine
DX: K42.9 Umbilical hernia without obstruction or gangrene (principal); Z68.43 Body mass index [BMI] 50.0-59.9, adult; E66.01 Morbid (severe) obesity due to excess calories; E11.9 Type 2 diabetes mellitus without complications; E78.5 Hyperlipidemia, unspecified; E11.40 Type 2 diabetes mellitus with diabetic neuropathy, unspecified; D64.9 Anemia, unspecified
CPT/HCPCS: 74177; 76705; 80053; 80061; 81001; 81003; 81025; 82728; 82962; 83036; 83540; 83690; 84443; 85025; 85610; 85730; J1815; J2270; J2405; J7030; Q9967